=== PATIENT | male | born 1940 | race African-American/Black ===

== ENCOUNTER 2020-02-17 21:47 | Inpatient (IN) ==
[2020-02-17] MEDS ORDERED: MECLIZINE 25 MG TABLET PO STA (22:18)
[2020-02-17] MEDS ORDERED: SODIUM CHLORIDE 0.9% 500 ML IV STA (22:18)
[2020-02-17 22:56] LABS: Apearance,Urine Slightly Hazy (Clear); Bacteria,Urine Occasional /HPF (Few); Bilirubin,Urine Negative (Negative); Blood, Urine Negative (Negative); Glucose,Urine (UA) Negative (Negative); Hyaline Casts,Urine 8 /LPF (0-3); Ketones,Urine Negative (Negative); Mucus,Urine Occasional /LPF (Occasional); Nitrite,Urine Negative (Negative); Protein,Urine 30 MG/DL; RBC,Urine 1 /HPF (0-4); Squamous Epithelial Cell,Urine Occasional /HPF (0-10); Urine Color Yellow (Yellow); Urine Specific Gravity 1.015 (1.001-1.035); Urine Urobilinogen < 2.0 EU/DL (0.2-1.0); WBC,Urine 20 /HPF (0-6)
[2020-02-17 23:04] LABS: Basophils % 0.3 % (0.0-0.8); Eosinophils # 0.1 10*3/uL (0.0-0.87); Eosinophils % 1.1 % (0.00-10.9); Hematocrit 43.6 VOL% (42.0-52.0); Hemoglobin 13.8 GM/DL (14.0-18.0); Immature Granulocytes Absolute 0.07 #; Lymphocytes # 0.7 10*3/uL (1.4-4.0); Lymphocytes % 9.7 % (21.2-54.2); Mean Corpuscular HGB Conc 31.7 GM/DL (32-36); Mean Corpuscular Volume 98.6 FL (87-102); Monocytes % 9.6 % (1.7-12.7); Neutrophils % 78.3 % (38.7-73.9); Platelet Count 86 T/CUMM (130-400); Red Blood Count 4.42 MC/CUMM (3.8-5.5); Red Cell Distribution Width 16.4 % (9.3-17.3); White Blood Count 7.1 T/CUMM (4-12)
[2020-02-17 23:08] LABS: Barbiturates Screen,Urine Negative (Negative); Benzodiazepines Screen,Urine Negative (Negative); Cannabinoid Screen,Urine Negative (Negative); Opiate Screen,Urine Negative (Negative); Phencyclidine Screen,Urine Negative (Negative)
[2020-02-17] MEDS ORDERED: cefTRIAXone 1,000 MG in SODIUM CHLORIDE 0.9% 100 ML IV STA (23:13)
[2020-02-17] MEDS ORDERED: cefTRIAXone 1,000 MG VIAL ONE (23:13)
[2020-02-17 23:14] LABS: INR 1.3; PT Patient Result 13.3 SECS (9.8-11.9)
[2020-02-17 23:26] LABS: Albumin 3.8 G/DL (3.4-5.0); Bilirubin,Total 1.5 MG/DL (0.2-1.0); Calcium 9.1 MG/DL (8.5-10.1); Total Protein 7.4 G/DL (6.4-8.3)
[2020-02-18] MEDS ORDERED: ONDANSETRON 4 MG/2 ML VIAL IV PRN (01:04)
[2020-02-18] MEDS ORDERED: MORPHINE 4 MG/1 ML VIAL IV PRN (01:04)
[2020-02-18] MEDS ORDERED: ACETAMINOPHEN 325 MG TABLET PO PRN (01:04)
[2020-02-18] MEDS ORDERED: GLUCAGON 1 MG VIAL IM PRN (01:04)
[2020-02-18] MEDS ORDERED: DEXTROSE 10% 250 ML BAG IV PRN (01:07)
[2020-02-18] MEDS: INSULIN REGULAR 100 UNIT/ML SUBCUT SCH ×4 (01:44→18:32)
[2020-02-18] MEDS: SODIUM CHLORIDE 0.9% 1,000 ML IV SCH ×6 (01:44→22:23)
[2020-02-18 06:06] LABS: Basophils % 0.3 % (0.0-0.8); Eosinophils # 0.1 10*3/uL (0.0-0.87); Eosinophils % 1.2 % (0.00-10.9); Hematocrit 40.1 VOL% (42.0-52.0); Hemoglobin 12.8 GM/DL (14.0-18.0); Immature Granulocytes % 1.3 %; Immature Granulocytes Absolute 0.09 #; Lymphocytes # 0.8 10*3/uL (1.4-4.0); Lymphocytes % 12.1 % (21.2-54.2); Mean Corpuscular HGB Conc 31.9 GM/DL (32-36); Mean Platelet Volume 13.3 FL (9.6-12.0); Monocytes % 10.7 % (1.7-12.7); Neutrophils % 74.4 % (38.7-73.9); Platelet Count 70 T/CUMM (130-400); Red Blood Count 4.09 MC/CUMM (3.8-5.5); Red Cell Distribution Width 16.4 % (9.3-17.3); White Blood Count 6.8 T/CUMM (4-12)
[2020-02-18 06:29] LABS: Hypochromasia 1+; Ovalocytes Slight; Platelet Estimate Decreased
[2020-02-18 06:37] LABS: Albumin 3.3 G/DL (3.4-5.0); Bilirubin,Total 1.5 MG/DL (0.2-1.0); Calcium 8.8 MG/DL (8.5-10.1); Osmolality,Calculated 298.8 MOS/KG (273-304); Total Protein 6.6 G/DL (6.4-8.3)
[2020-02-18] MEDS: PANTOPRAZOLE 40 MG TABLET PO SCH (08:07)
[2020-02-18] MEDS: DOCUSATE SODIUM 100 MG CAPSULE PO SCH ×2 (08:07→22:22)
[2020-02-18] MEDS: cefTRIAXone 1,000 MG in SYRINGE 1 EACH IV SCH (22:21)
[2020-02-19] MEDS: INSULIN REGULAR 100 UNIT/ML SUBCUT SCH ×3 (01:25→12:28)
[2020-02-19 05:02] LABS: Basophils % 0.5 % (0.0-0.8); Eosinophils # 0.1 10*3/uL (0.0-0.87); Eosinophils % 1.8 % (0.00-10.9); Hematocrit 41.1 VOL% (42.0-52.0); Hemoglobin 12.8 GM/DL (14.0-18.0); Immature Granulocytes % 0.9 %; Immature Granulocytes Absolute 0.06 #; Lymphocytes # 0.8 10*3/uL (1.4-4.0); Lymphocytes % 11.3 % (21.2-54.2); Mean Corpuscular HGB Conc 31.1 GM/DL (32-36); Mean Corpuscular Volume 98.3 FL (87-102); Mean Platelet Volume 14.3 FL (9.6-12.0); Monocytes % 10.4 % (1.7-12.7); Neutrophils % 75.1 % (38.7-73.9); Platelet Count 82 T/CUMM (130-400); Red Blood Count 4.18 MC/CUMM (3.8-5.5); Red Cell Distribution Width 16.6 % (9.3-17.3); White Blood Count 6.6 T/CUMM (4-12)
[2020-02-19 05:28] LABS: Calcium 9.1 MG/DL (8.5-10.1); Osmolality,Calculated 298.8 MOS/KG (273-304)
[2020-02-19 05:29] LABS: Platelet Estimate Decreased
[2020-02-19] MEDS: SODIUM CHLORIDE 0.9% 1,000 ML IV SCH ×3 (06:55→18:00)
[2020-02-19] MEDS ORDERED: LEVOFLOXACIN INJ 500 MG in PREMIX 1 EACH IV SCH (08:30)
[2020-02-19] MEDS: DOCUSATE SODIUM 100 MG CAPSULE PO SCH ×2 (08:55→21:12)
[2020-02-19] MEDS: PANTOPRAZOLE 40 MG TABLET PO SCH (08:55)
[2020-02-19] MEDS: cefTRIAXone 1,000 MG in SYRINGE 1 EACH IV SCH (21:12)
[2020-02-20] MEDS: INSULIN REGULAR 100 UNIT/ML SUBCUT SCH ×3 (00:26→09:48)
[2020-02-20] MEDS: SODIUM CHLORIDE 0.9% 1,000 ML IV SCH ×3 (01:04→09:49)
[2020-02-20 07:51] VITALS: BP 135/83
[2020-02-20] MEDS: PANTOPRAZOLE 40 MG TABLET PO SCH (09:49)
[2020-02-20] MEDS: DOCUSATE SODIUM 100 MG CAPSULE PO SCH (09:49)
== END 2020-02-20 10:52 | disposition swing bed (61) | DRG 690 ==
LOC: N.TELES 21:47 → N.ED 21:47 → N.EDINP 21:47
PROVIDERS: ADMIT Internal Medicine; ATTEND Internal Medicine

== ENCOUNTER 2020-06-01 09:03 | Inpatient (IN) ==
[2020-06-01] MEDS ORDERED: FUROSEMIDE 100 MG/10 ML VIAL IV STA (09:50)
[2020-06-01 10:02] LABS: Basophils % 0.3 % (0.0-0.8); Eosinophils # 0.2 10*3/uL (0.0-0.87); Eosinophils % 2.2 % (0.00-10.9); Hematocrit 34.9 VOL% (42.0-52.0); Hemoglobin 10.9 GM/DL (14.0-18.0); Immature Granulocytes % 0.9 %; Immature Granulocytes Absolute 0.06 #; Lymphocytes # 0.7 10*3/uL (1.4-4.0); Mean Corpuscular HGB Conc 31.2 GM/DL (32-36); Mean Corpuscular Volume 100.9 FL (87-102); Mean Platelet Volume 12.6 FL (9.6-12.0); Monocytes % 7.2 % (1.7-12.7); Neutrophils % 79.4 % (38.7-73.9); Platelet Count 99 T/CUMM (130-400); Red Blood Count 3.46 MC/CUMM (3.8-5.5); White Blood Count 6.7 T/CUMM (4-12)
[2020-06-01 10:14] LABS: Albumin 3.2 G/DL (3.4-5.0); Bilirubin,Total 0.5 MG/DL (0.2-1.0); Calcium 9.1 MG/DL (8.5-10.1); Osmolality,Calculated 296.4 MOS/KG (273-304); Total Protein 7.2 G/DL (6.4-8.3)
[2020-06-01 11:07] LABS: Anisocytosis 2+; Hypochromasia 1+; Macrocytosis 1+; Platelet Estimate Decreased
[2020-06-01] MEDS ORDERED: DEXTROSE 50% 25 GM/50 ML VIAL IV PRN ×2 (11:12→16:14)
[2020-06-01] MEDS ORDERED: GLUCAGON 1 MG VIAL IM PRN ×2 (11:12→16:14)
[2020-06-01] MEDS ORDERED: ACETAMINOPHEN 325 MG TABLET PO PRN (11:12)
[2020-06-01] MEDS ORDERED: ONDANSETRON 4 MG/2 ML VIAL IV PRN (11:12)
[2020-06-01 11:47] LABS: Amorphous Crystals,Urine Occasional /HPF (Few); Apearance,Urine CLEAR (Clear); Bilirubin,Urine Negative (Negative); Blood, Urine Negative (Negative); Glucose,Urine (UA) Negative (Negative); Hyaline Casts,Urine 13 /LPF (0-3); Ketones,Urine Negative (Negative); Mucus,Urine Occasional /LPF (Occasional); Nitrite,Urine Negative (Negative); Protein,Urine Negative; RBC,Urine <1 /HPF (0-4); Sperm,Urine Occasional /HPF (Negative); Urine Color Yellow (Yellow); Urine Specific Gravity 1.014 (1.001-1.035); Urine Urobilinogen < 2.0 EU/DL (0.2-1.0); WBC,Urine <1 /HPF (0-6)
[2020-06-01] MEDS: metOLazone 5 MG TABLET PO SCH ×2 (14:29→22:23)
[2020-06-01] MEDS ORDERED: FUROSEMIDE 20 MG TABLET PO SCH (16:00)
[2020-06-01] MEDS ORDERED: COLCHICINE 0.6 MG CAPSULE PO PRN (16:02)
[2020-06-01] MEDS: INSULIN LISPRO 100 UNIT/ML SUBCUT SCH ×2 (17:04→22:24)
[2020-06-01] MEDS: FUROSEMIDE 80 MG TABLET PO SCH (17:07)
[2020-06-01] MEDS: SIMVASTATIN 40 MG TABLET PO SCH (17:07)
[2020-06-01] MEDS: DOCUSATE SODIUM 100 MG CAPSULE PO SCH (22:24)
[2020-06-01] MEDS: allopurinoL 100 MG TABLET PO SCH (22:25)
[2020-06-02 07:53] LABS: Basophils % 0.2 % (0.0-0.8); Eosinophils # 0.1 10*3/uL (0.0-0.87); Eosinophils % 1.4 % (0.00-10.9); Hematocrit 33.2 VOL% (42.0-52.0); Hemoglobin 10.8 GM/DL (14.0-18.0); Immature Granulocytes % 0.5 %; Immature Granulocytes Absolute 0.05 #; Lymphocytes # 0.7 10*3/uL (1.4-4.0); Lymphocytes % 6.9 % (21.2-54.2); Mean Corpuscular HGB Conc 32.5 GM/DL (32-36); Mean Corpuscular Volume 97.9 FL (87-102); Mean Platelet Volume 12.4 FL (9.6-12.0); Platelet Count 102 T/CUMM (130-400); Red Blood Count 3.39 MC/CUMM (3.8-5.5); Red Cell Distribution Width 16.9 % (9.3-17.3); White Blood Count 9.7 T/CUMM (4-12)
[2020-06-02 08:13] LABS: Calcium 9.2 MG/DL (8.5-10.1); Osmolality,Calculated 298.1 MOS/KG (273-304)
[2020-06-02] MEDS: INSULIN LISPRO 100 UNIT/ML SUBCUT SCH ×4 (08:58→21:51)
[2020-06-02] MEDS ORDERED: Esomeprazole Magnesium 40 MG PO SCH (09:00)
[2020-06-02] MEDS: MAGNESIUM OXIDE 400 MG TABLET PO SCH (09:57)
[2020-06-02] MEDS: PANTOPRAZOLE 40 MG TABLET PO SCH (09:57)
[2020-06-02] MEDS: FUROSEMIDE 80 MG TABLET PO SCH (09:57)
[2020-06-02] MEDS: EZETIMIBE 10 MG TABLET PO SCH (09:58)
[2020-06-02] MEDS: sitaGLIPtin 25 MG TABLET PO SCH (09:58)
[2020-06-02] MEDS: DOCUSATE SODIUM 100 MG CAPSULE PO SCH ×2 (09:58→21:50)
[2020-06-02] MEDS: allopurinoL 100 MG TABLET PO SCH ×2 (09:58→21:50)
[2020-06-02] MEDS: metOLazone 5 MG TABLET PO SCH ×2 (09:58→21:51)
[2020-06-02] MEDS: METOPROLOL TARTRATE 25 MG TABLET PO SCH (09:58)
[2020-06-02] MEDS: ASPIRIN CHEW 81 MG TABLET PO SCH (09:59)
[2020-06-02] MEDS: INSULIN LISPRO PROTAMINE/LISPRO 75/25 100 UNIT/ML SUBCUT SCH (16:47)
[2020-06-02] MEDS: FUROSEMIDE 40 MG/4 ML VIAL IV SCH (17:26)
[2020-06-02] MEDS: SIMVASTATIN 40 MG TABLET PO SCH (17:26)
[2020-06-03 05:57] LABS: Basophils % 0.3 % (0.0-0.8); Eosinophils # 0.1 10*3/uL (0.0-0.87); Eosinophils % 2.1 % (0.00-10.9); Hematocrit 33.2 VOL% (42.0-52.0); Hemoglobin 10.5 GM/DL (14.0-18.0); Immature Granulocytes % 0.7 %; Immature Granulocytes Absolute 0.05 #; Lymphocytes # 0.6 10*3/uL (1.4-4.0); Lymphocytes % 8.4 % (21.2-54.2); Mean Corpuscular HGB Conc 31.6 GM/DL (32-36); Mean Corpuscular Volume 100.3 FL (87-102); Mean Platelet Volume 12.8 FL (9.6-12.0); Monocytes % 8.8 % (1.7-12.7); Neutrophils % 79.7 % (38.7-73.9); Platelet Count 69 T/CUMM (130-400); Red Blood Count 3.31 MC/CUMM (3.8-5.5); Red Cell Distribution Width 16.8 % (9.3-17.3); White Blood Count 6.8 T/CUMM (4-12)
[2020-06-03 06:12] LABS: Calcium 9.1 MG/DL (8.5-10.1); Osmolality,Calculated 301.2 MOS/KG (273-304)
[2020-06-03 06:21] LABS: Hypochromasia 1+; Platelet Estimate Decreased
[2020-06-03] MEDS: INSULIN LISPRO 100 UNIT/ML SUBCUT SCH ×4 (09:34→21:44)
[2020-06-03] MEDS: FUROSEMIDE 40 MG/4 ML VIAL IV SCH ×2 (09:35→17:48)
[2020-06-03] MEDS: EZETIMIBE 10 MG TABLET PO SCH (09:35)
[2020-06-03] MEDS: MAGNESIUM OXIDE 400 MG TABLET PO SCH (09:35)
[2020-06-03] MEDS: PANTOPRAZOLE 40 MG TABLET PO SCH (09:36)
[2020-06-03] MEDS: allopurinoL 100 MG TABLET PO SCH ×2 (09:36→21:45)
[2020-06-03] MEDS: DOCUSATE SODIUM 100 MG CAPSULE PO SCH ×2 (09:36→21:45)
[2020-06-03] MEDS: sitaGLIPtin 25 MG TABLET PO SCH (09:36)
[2020-06-03] MEDS: METOPROLOL TARTRATE 25 MG TABLET PO SCH (09:36)
[2020-06-03] MEDS: ASPIRIN CHEW 81 MG TABLET PO SCH (09:36)
[2020-06-03] MEDS: metOLazone 5 MG TABLET PO SCH ×2 (09:36→21:45)
[2020-06-03] MEDS: INSULIN LISPRO PROTAMINE/LISPRO 75/25 100 UNIT/ML SUBCUT SCH (11:03)
[2020-06-03] MEDS: SIMVASTATIN 40 MG TABLET PO SCH (17:48)
[2020-06-04 07:26] LABS: Basophils % 0.2 % (0.0-0.8); Eosinophils # 0.1 10*3/uL (0.0-0.87); Eosinophils % 1.7 % (0.00-10.9); Hematocrit 35.1 VOL% (42.0-52.0); Hemoglobin 11.2 GM/DL (14.0-18.0); Immature Granulocytes % 0.7 %; Immature Granulocytes Absolute 0.06 #; Lymphocytes # 0.6 10*3/uL (1.4-4.0); Lymphocytes % 7.2 % (21.2-54.2); Mean Corpuscular HGB Conc 31.9 GM/DL (32-36); Mean Corpuscular Volume 98.9 FL (87-102); Monocytes % 7.4 % (1.7-12.7); Neutrophils % 82.8 % (38.7-73.9); Platelet Count 90 T/CUMM (130-400); Red Blood Count 3.55 MC/CUMM (3.8-5.5); Red Cell Distribution Width 16.7 % (9.3-17.3); White Blood Count 8.5 T/CUMM (4-12)
[2020-06-04 07:41] LABS: Osmolality,Calculated 295.1 MOS/KG (273-304)
[2020-06-04 07:53] LABS: Hypochromasia 1+; Ovalocytes Slight; Platelet Estimate Decreased
[2020-06-04] MEDS: INSULIN LISPRO 100 UNIT/ML SUBCUT SCH ×4 (08:40→21:23)
[2020-06-04] MEDS: EZETIMIBE 10 MG TABLET PO SCH (09:59)
[2020-06-04] MEDS: MAGNESIUM OXIDE 400 MG TABLET PO SCH (09:59)
[2020-06-04] MEDS: ASPIRIN CHEW 81 MG TABLET PO SCH (09:59)
[2020-06-04] MEDS: sitaGLIPtin 25 MG TABLET PO SCH (09:59)
[2020-06-04] MEDS: DOCUSATE SODIUM 100 MG CAPSULE PO SCH ×2 (10:00→21:22)
[2020-06-04] MEDS: allopurinoL 100 MG TABLET PO SCH ×2 (10:00→21:22)
[2020-06-04] MEDS: METOPROLOL TARTRATE 25 MG TABLET PO SCH (10:00)
[2020-06-04] MEDS: PANTOPRAZOLE 40 MG TABLET PO SCH (10:00)
[2020-06-04] MEDS: FUROSEMIDE 40 MG/4 ML VIAL IV SCH ×2 (10:00→17:04)
[2020-06-04] MEDS: metOLazone 5 MG TABLET PO SCH ×2 (10:00→21:22)
[2020-06-04] MEDS: INSULIN LISPRO PROTAMINE/LISPRO 75/25 100 UNIT/ML SUBCUT SCH (10:04)
[2020-06-04] MEDS: SIMVASTATIN 40 MG TABLET PO SCH (17:05)
[2020-06-05 05:22] LABS: Basophils % 0.3 % (0.0-0.8); Eosinophils # 0.2 10*3/uL (0.0-0.87); Eosinophils % 1.7 % (0.00-10.9); Hematocrit 34.4 VOL% (42.0-52.0); Hemoglobin 11.1 GM/DL (14.0-18.0); Immature Granulocytes % 0.7 %; Immature Granulocytes Absolute 0.07 #; Lymphocytes # 0.6 10*3/uL (1.4-4.0); Lymphocytes % 5.9 % (21.2-54.2); Mean Corpuscular HGB Conc 32.3 GM/DL (32-36); Mean Corpuscular Volume 98.6 FL (87-102); Mean Platelet Volume 12.6 FL (9.6-12.0); Monocytes % 7.6 % (1.7-12.7); Neutrophils % 83.8 % (38.7-73.9); Platelet Count 95 T/CUMM (130-400); Red Blood Count 3.49 MC/CUMM (3.8-5.5); Red Cell Distribution Width 16.7 % (9.3-17.3); White Blood Count 10.1 T/CUMM (4-12)
[2020-06-05 05:49] LABS: Calcium 8.8 MG/DL (8.5-10.1); Osmolality,Calculated 301.1 MOS/KG (273-304)
[2020-06-05 06:36] LABS: Anisocytosis 1+; Eosinophils 1 % (0-10); Lymphocytes 6 % (20-55); Platelet Estimate Decreased; Segmented Neutrophils 89 % (50-85); Total Cells Counted 100
[2020-06-05] MEDS: INSULIN LISPRO 100 UNIT/ML SUBCUT SCH ×4 (09:45→21:05)
[2020-06-05] MEDS: MAGNESIUM OXIDE 400 MG TABLET PO SCH (09:47)
[2020-06-05] MEDS: METOPROLOL TARTRATE 25 MG TABLET PO SCH (09:47)
[2020-06-05] MEDS: EZETIMIBE 10 MG TABLET PO SCH (09:47)
[2020-06-05] MEDS: ASPIRIN CHEW 81 MG TABLET PO SCH (09:48)
[2020-06-05] MEDS: PANTOPRAZOLE 40 MG TABLET PO SCH (09:48)
[2020-06-05] MEDS: allopurinoL 100 MG TABLET PO SCH ×2 (09:48→21:05)
[2020-06-05] MEDS: metOLazone 5 MG TABLET PO SCH ×2 (09:48→21:05)
[2020-06-05] MEDS: sitaGLIPtin 25 MG TABLET PO SCH (09:48)
[2020-06-05] MEDS: INSULIN LISPRO PROTAMINE/LISPRO 75/25 100 UNIT/ML SUBCUT SCH (09:49)
[2020-06-05] MEDS: DOCUSATE SODIUM 100 MG CAPSULE PO SCH ×2 (09:49→21:05)
[2020-06-05] MEDS: FUROSEMIDE 40 MG/4 ML VIAL IV SCH ×2 (09:49→16:54)
[2020-06-05] MEDS: SIMVASTATIN 40 MG TABLET PO SCH (16:55)
[2020-06-06 05:25] LABS: Basophils % 0.1 % (0.0-0.8); Eosinophils # 0.2 10*3/uL (0.0-0.87); Eosinophils % 1.7 % (0.00-10.9); Hematocrit 31.8 VOL% (42.0-52.0); Hemoglobin 10.4 GM/DL (14.0-18.0); Immature Granulocytes % 0.6 %; Immature Granulocytes Absolute 0.06 #; Lymphocytes # 0.5 10*3/uL (1.4-4.0); Lymphocytes % 5.7 % (21.2-54.2); Mean Corpuscular HGB Conc 32.7 GM/DL (32-36); Mean Corpuscular Volume 97.2 FL (87-102); Monocytes % 7.9 % (1.7-12.7); Platelet Count 84 T/CUMM (130-400); Red Blood Count 3.27 MC/CUMM (3.8-5.5); Red Cell Distribution Width 16.3 % (9.3-17.3); White Blood Count 9.5 T/CUMM (4-12)
[2020-06-06 05:38] LABS: Calcium 8.7 MG/DL (8.5-10.1); Osmolality,Calculated 301.1 MOS/KG (273-304)
[2020-06-06 07:13] LABS: Anisocytosis 2+; Platelet Estimate Decreased; Polychromasia Slight
[2020-06-06] MEDS: allopurinoL 100 MG TABLET PO SCH ×2 (09:29→20:23)
[2020-06-06] MEDS: ASPIRIN CHEW 81 MG TABLET PO SCH (09:29)
[2020-06-06] MEDS: EZETIMIBE 10 MG TABLET PO SCH (09:30)
[2020-06-06] MEDS: metOLazone 5 MG TABLET PO SCH ×2 (09:30→20:23)
[2020-06-06] MEDS: METOPROLOL TARTRATE 25 MG TABLET PO SCH (09:30)
[2020-06-06] MEDS: PANTOPRAZOLE 40 MG TABLET PO SCH (09:30)
[2020-06-06] MEDS: MAGNESIUM OXIDE 400 MG TABLET PO SCH (09:30)
[2020-06-06] MEDS: DOCUSATE SODIUM 100 MG CAPSULE PO SCH ×2 (09:31→20:23)
[2020-06-06] MEDS: sitaGLIPtin 25 MG TABLET PO SCH (09:31)
[2020-06-06] MEDS: FUROSEMIDE 40 MG/4 ML VIAL IV SCH ×2 (09:31→17:42)
[2020-06-06] MEDS: INSULIN LISPRO PROTAMINE/LISPRO 75/25 100 UNIT/ML SUBCUT SCH (09:31)
[2020-06-06] MEDS: INSULIN LISPRO 100 UNIT/ML SUBCUT SCH ×4 (09:32→20:23)
[2020-06-06] MEDS: SIMVASTATIN 40 MG TABLET PO SCH (17:42)
[2020-06-07 05:41] LABS: Basophils % 0.1 % (0.0-0.8); Eosinophils # 0.2 10*3/uL (0.0-0.87); Eosinophils % 2.2 % (0.00-10.9); Hematocrit 32.4 VOL% (42.0-52.0); Hemoglobin 10.3 GM/DL (14.0-18.0); Immature Granulocytes % 0.8 %; Immature Granulocytes Absolute 0.08 #; Lymphocytes # 0.7 10*3/uL (1.4-4.0); Lymphocytes % 7.2 % (21.2-54.2); Mean Corpuscular HGB Conc 31.8 GM/DL (32-36); Mean Corpuscular Volume 97.6 FL (87-102); Mean Platelet Volume 12.3 FL (9.6-12.0); Monocytes % 9.3 % (1.7-12.7); Neutrophils % 80.4 % (38.7-73.9); Platelet Count 92 T/CUMM (130-400); Red Blood Count 3.32 MC/CUMM (3.8-5.5); Red Cell Distribution Width 16.4 % (9.3-17.3); White Blood Count 9.6 T/CUMM (4-12)
[2020-06-07 06:04] LABS: Band Neutrophils 1 % (0-10); Lymphocytes 6 % (20-55); Segmented Neutrophils 88 % (50-85); Total Cells Counted 100
[2020-06-07 06:05] LABS: Anisocytosis 1+; Hypochromasia 1+; Ovalocytes Slight; Target Cells Slight
[2020-06-07 06:06] LABS: Platelet Estimate Decreased; Polychromasia Slight
[2020-06-07 06:19] LABS: Calcium 9.1 MG/DL (8.5-10.1); Osmolality,Calculated 300.8 MOS/KG (273-304)
[2020-06-07] MEDS: INSULIN LISPRO 100 UNIT/ML SUBCUT SCH ×4 (08:04→21:39)
[2020-06-07] MEDS: POTASSIUM CHLORIDE 20 MEQ TABLET PO PRN ×3 (09:48→15:24)
[2020-06-07] MEDS: FUROSEMIDE 40 MG/4 ML VIAL IV SCH (09:48)
[2020-06-07] MEDS: INSULIN LISPRO PROTAMINE/LISPRO 75/25 100 UNIT/ML SUBCUT SCH (09:48)
[2020-06-07] MEDS: metOLazone 5 MG TABLET PO SCH ×2 (09:48→21:10)
[2020-06-07] MEDS: MAGNESIUM OXIDE 400 MG TABLET PO SCH (09:48)
[2020-06-07] MEDS: ASPIRIN CHEW 81 MG TABLET PO SCH (09:48)
[2020-06-07] MEDS: sitaGLIPtin 25 MG TABLET PO SCH (09:48)
[2020-06-07] MEDS: PANTOPRAZOLE 40 MG TABLET PO SCH (09:48)
[2020-06-07] MEDS: EZETIMIBE 10 MG TABLET PO SCH (09:48)
[2020-06-07] MEDS: METOPROLOL TARTRATE 25 MG TABLET PO SCH (09:48)
[2020-06-07] MEDS: allopurinoL 100 MG TABLET PO SCH ×2 (09:48→21:10)
[2020-06-07] MEDS: DOCUSATE SODIUM 100 MG CAPSULE PO SCH ×2 (09:48→21:10)
[2020-06-07] MEDS: FUROSEMIDE 80 MG TABLET PO SCH (17:24)
[2020-06-07] MEDS: SIMVASTATIN 40 MG TABLET PO SCH (17:24)
[2020-06-08 07:15] LABS: Calcium 9.1 MG/DL (8.5-10.1); Osmolality,Calculated 294.1 MOS/KG (273-304)
[2020-06-08] MEDS: INSULIN LISPRO 100 UNIT/ML SUBCUT SCH ×2 (08:57→13:09)
[2020-06-08] MEDS: metOLazone 5 MG TABLET PO SCH (08:58)
[2020-06-08] MEDS: INSULIN LISPRO PROTAMINE/LISPRO 75/25 100 UNIT/ML SUBCUT SCH (08:58)
[2020-06-08] MEDS: PANTOPRAZOLE 40 MG TABLET PO SCH (08:58)
[2020-06-08] MEDS: FUROSEMIDE 80 MG TABLET PO SCH (08:59)
[2020-06-08] MEDS: sitaGLIPtin 25 MG TABLET PO SCH (08:59)
[2020-06-08] MEDS: MAGNESIUM OXIDE 400 MG TABLET PO SCH (08:59)
[2020-06-08] MEDS: allopurinoL 100 MG TABLET PO SCH (08:59)
[2020-06-08] MEDS: DOCUSATE SODIUM 100 MG CAPSULE PO SCH (08:59)
[2020-06-08] MEDS: METOPROLOL TARTRATE 25 MG TABLET PO SCH (08:59)
[2020-06-08] MEDS: EZETIMIBE 10 MG TABLET PO SCH (09:00)
[2020-06-08] MEDS: ASPIRIN CHEW 81 MG TABLET PO SCH (09:00)
[2020-06-08] MEDS ORDERED: MULTIVITAMIN (CENTRUM) TABLET PO SCH (09:00)
[2020-06-08 12:42] VITALS: BP 115/58
== END 2020-06-08 14:03 | DRG 291 ==
LOC: EDUNIT# → EDBD → N.ED 09:03 → N.EDINP 11:11 → N.TELES 15:56
PROVIDERS: ADMIT Internal Medicine; ATTEND Internal Medicine